=== PATIENT | female | born 1990 | race Caucasian/White ===

== ENCOUNTER 2020-02-15 12:40 | Emergency (ER) | payer MEDICAID, SELFPAY ==
[~2020-02-15] VITALS: Ht 160 cm; Wt 57.2 kg
[2020-02-15 12:44] VITALS: BP 115/81; Ht 160 cm; Wt 57.2 kg
== END 2020-02-15 15:00 | disposition home or self-care (01) ==
LOC: ED 12:40
DX: R07.89 Other chest pain (principal); R06.02 Shortness of breath